=== PATIENT | male | born 1980 | race Caucasian/White ===

== ENCOUNTER 2021-10-27 05:55 | Day surgery (SDC) | payer OTHER ==
[~2021-10-27] VITALS: Ht 190.5 cm; Wt 125.0 kg
[~2021-10-27 05:55] MED LIST: LITHIUM CARBON600 MG PO; OSTERA TABLET1 EACH PO
--- NOTE | 2021-10-27 08:39 | NUR ---
PT ALERT, ORIENTED AND RATHER SUBDUED. PT ANSWERS QUESTIONS RATHER MATTER OF FACTLY, BUT RESPECTFULLY.PT RESERVED, REQUESTED PRAYER AND HAS RIDE HIS RIDE HOME ARRANGED. WILL FOLLOW
--- NOTE | 2021-10-27 09:11 | NUR ---
10/27/21 0911 Kassie Marcum 0908 PATIENT ARRIVES TO PACU UNRESPONSIVE TO PAIN. ORAL AIRWAY IN PLACE. RESP EVEN AND UNLABORED WITH INTERVENTION, MASK AT 6 LITERS, INCREASED TO 8 LITERS.
[2021-10-27] MEDS ORDERED: ACETAMINOPHEN500 MG PO (09:20)
[2021-10-27] MEDS ORDERED: OXYCODON-ACETA1 EAC2 PO (09:20)
--- NOTE | 2021-10-27 10:18 | NUR ---
1005 PATIENT TO DAY SURGERY 6. REPORT RECIEVED FROM DALLAS BARRIOS. PATIENT IS DROWSY. PATIENT BREATHING EQUAL AND UNLABORED. OXYGEN SATURATIONS 90% ON ROOM AIR. PATIENT COMPLAINS OF 6/10 DENIES ANY PAIN MEDICATION AT THIS TIME. IVF INFUSING. AT BEDSIDE. CALL LIGHT WITHIN REACH NO FUTHER NEEDS. NO QUESTIONS AT THIS TIME.
--- NOTE | 2021-10-27 11:37 | NUR ---
1105 PATIENT ABLE TO AMBULATE TO RESTROOM. VOIDED 400 MLS OF CLEAR AND YELLOW URINE. PATIENT IS ALERT AND ORIENTED. BREATHING EQUAL AND UNLABORED. OXYGEN SATURATIONS ABOVE 90% ON ROOM AIR. PATIENT ABLE TO EAT AND DRINK. DENIES NAUSEA. PATIENT COMPLAINS OF 4/10 PAIN. DENIES NEEDING ANYTHING FOR PAIN AT THIS TIME. CALL LIGHT WITHIN REACH NO FUTHER NEEDS. NO QUESTIONS AT THIS TIME. 1125 PATIENT HAS MET DISCHARGE CRITERIA. PATIENT DRESSED SELF AND TOLERATED IT WELL. NO QUESTIONS AT THIS TIME. IV D/C'D WNL. PATIENT WAS WHEELED OUT OF FACILITY TO PRIVATE AUTO WITH .
--- NOTE | 2021-10-27 13:04 | OR ---
[facility] [address], [place] [address] Signed DATE OF OPERATION: 10/27/2021 SURGEON: Isabelle Encinas MD PREOPERATIVE DIAGNOSIS: Acalculous cholecystitis. POSTOPERATIVE DIAGNOSES: 1. Acalculous cholecystitis. 2. Fatty infiltration of liver with mild granular nodularity. PROCEDURES: 1. Laparoscopic cholecystectomy with intraoperative cholangiogram. 2. Surgeon-directed fluoroscopy. 3. Laparoscopic liver biopsy (medial segment left lobe of liver). ANESTHESIA: General endotracheal, Nina Alejandra, SCRAP CHARGER and local 15 mL of 0.25% Marcaine with epinephrine. INDICATION: This 40-year-old large man is a patient of Dr. Stan Pizano and has had symptoms highly typical of biliary disease including postprandial right upper abdominal and epigastric pain. A gallbladder ultrasound was found to be normal and subsequent CCK-HIDA test was performed, which showed essentially no ejection fraction from the gallbladder at all. This was performed on July 28, 2021. His symptoms have increased in recent times. He is admitted at this time to undergo cholecystectomy preferred by a laparoscopic approach. He understands the risk of bleeding, infection, bile duct injury, need for open procedure and importantly failure to improve his symptoms. Understanding these risks, he wished to proceed. FINDINGS: The gallbladder was chronically inflamed and relatively distended. The cholangiogram was found to be normal. The gallbladder once excised showed chronic inflammatory change of the mucosa and one small bit of cholesterol material adherent to the mucosa. The patient also had fatty liver with mild coarse nodularity and on that basis, a liver biopsy was obtained as well. There were no complications. DESCRIPTION OF PROCEDURE: Electronically Signed By: ISABELLE ENCINAS MD 10/27/21 1304 PATIENT NAME: ARCELIA COATES OPERATIVE REPORT DATE OF : 80 REPORT #: [id number] PHYSICIAN: ISABELLE ENCINAS MD PCP: STAN PIZANO MD REPORT IS CONFIDENTIAL AND NOT TO BE RELEASED WITHOUT AUTHORIZATION [facility] [address], [place] [address] Signed The patient was brought to the operating room, and given a general endotracheal anesthetic. Preoperative antibiotic Ancef was given. Sequential compression device stockings were used and heparin subcutaneously administered. The abdomen was clipped and prepared with a chlorhexidine solution and draped sterilely. An infraumbilical incision was made and using an open Colt cannula technique pneumoperitoneum was achieved to a level of 14 mmHg of carbon dioxide gas. Intra-abdominal inspection showed no sign of ascites or carcinomatosis. The liver had a somewhat fatty infiltrated appearance with mild granular nodularity. Adhesions were noted to the gallbladder itself. Three additional trocars were placed in usual configuration in the subxiphoid, right midclavicular, and right anterior axillary line. The gallbladder was dissected free from omental adhesions and elevated cephalad. The gallbladder itself did look chronically inflamed. Lateral retraction of the infundibulum of the gallbladder allowed for dissection of the triangle of Calot. The critical view of safety maintained identifying the cystic arterial branch which was doubly clipped and divided and ultimately the cystic duct itself. A clip was applied across the gallbladder cystic duct junction and a transverse choledochotomy made in the cystic duct. Egress of clear bile was noted. Using an Nguyễn type cholangiocatheter system, intraoperative cholangiography was undertaken showing free flow of contrast in biliary tree with prompt emptying into the duodenum. There was no sign of biliary anomaly or other abnormality and certainly no filling defect. The catheter was removed and the cystic duct was triply clipped and divided and the gallbladder was dissected free in a retrograde fashion using electrocautery. The gallbladder was not entered and there was no spillage of bile, nevertheless the gallbladder was placed in an endobag and extracted through the infraumbilical port site without problem. The gallbladder was opened on the back table and found to have chronic inflammatory change of the mucosa and a bit of adherent cholesterol debris. Irrigation was undertaken in the subhepatic space. There was no sign of bile leak, bleeding, or other problem. Given the unusual nature of his liver, liver biopsy was deemed warranted. Percutaneously, a Biopty gun biopsy was taken in the medial segment of left lobe of the liver. A good biopsy specimen was obtained. The site was cauterized with good hemostasis. The trocars were removed under direct visualization showing no sign of bleeding. Infraumbilical fascial incision was reapproximated with interrupted 0 Vicryl suture. A 15 mL of 0.25% Marcaine with epinephrine injected locally. The skin was closed with interrupted 3-0 Vicryl. Steri-Strips were applied as well. The patient was ultimately extubated and transferred to the recovery room in good condition having suffered no complications. Sponge, needle, and instrument counts were reported as Electronically Signed By: ISABELLE ENCINAS MD 10/27/21 1304 PATIENT NAME: ARCELIA COATES OPERATIVE REPORT DATE OF : 80 REPORT #: [id number] PHYSICIAN: ISABELLE ENCINAS MD PCP: STAN PIZANO MD REPORT IS CONFIDENTIAL AND NOT TO BE RELEASED WITHOUT AUTHORIZATION [address] [address] Signed correct x3. MD MARCELINO Murdock/MODL /[id number] cc: Stan Pizano MD Copies: STAN PIZANO MD ~ Electronically Signed By: ISABELLE ENCINAS MD 10/27/21 1304 PATIENT NAME: ARCELIA COATES HELENE OPERATIVE REPORT DATE OF : 80 REPORT #: [id number] PHYSICIAN: ISABELLE ENCINAS MD PCP: STAN PIZANO MD REPORT IS CONFIDENTIAL AND NOT TO BE RELEASED WITHOUT AUTHORIZATION
--- NOTE | 2021-10-28 11:45 | PATH ---
[facility] [address] [place], [place] [address] Signed SPECIMEN(S): A GALLBLADDER SPECIMEN(S): B LIVER BIOPSY SPECIMEN SOURCE: A. GALLBLADDER B. LIVER BIOPSY CLINICAL HISTORY: Chronic cholecystitis. Laparoscopic cholecystectomy. FINAL PATHOLOGIC DIAGNOSIS: A. Gallbladder, cholecystectomy: - Mild chronic cholecystitis. B. Liver, needle core biopsy: - Steatohepatitis, moderate to marked, with cirrhosis. - See microscopic description and comment. COMMENT: Additional clinical history regarding the liver is not provided. Diagnostic considerations include alcohol-induced fatty liver disease versus NAFLD. Clinical correlation is indicated. AMB:[facility]:C2NR MICROSCOPIC EXAMINATION: A. Histologic sections of all submitted blocks are examined by light microscopy. These findings, together with the gross examination, support the pathologic diagnosis. B. A biopsy of partially fragmented hepatic tissue is reviewed, containing scattered portal triads for evaluation. The most prominent finding is that of large droplet steatosis, with associated mild to moderate periportal and mild lobular inflammation. 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 Occasional glycogenated nuclei are present. Bile ductules are present in all portal tracts reviewed, with no evidence of granulomata or ductulitis. Trichrome and reticulin stains highlight increased periportal fibrosis, foci of lobular fibrosis and the formation of regenerative nodules consistent with early cirrhosis. Iron stain reveals no evidence of increased hepatocellular iron deposition, and PAS with diastase reveals no intracellular PATIENT NAME: ARCELIA COATES PATHOLOGY DATE OF : 80 REPORT #: [id number] PHYSICIAN: GULSHAN PEREZ PCP: STAN DUNNE MD REPORT IS CONFIDENTIAL AND NOT TO BE RELEASED WITHOUT AUTHORIZATION [facility] [address], [place] [address] Signed inclusions. There is no evidence of malignancy. AMB:[facility] GROSS DESCRIPTION: Two specimens are received in two containers, labeled "AA." A. The specimen, labeled "AA, A," and designated on the requisition "gallbladder," is received in formalin and consists of Specimen: Previously opened gallbladder. Dimensions: 8.4 x 4.3 cm. Serosa: Violaceous and smooth. Cystic Duct: unobstructed. Calculi: Not grossly identified. Mucosa: Yo-red and roughened. Wall thickness: Up to 0.4 cm. Lymph node: No pericystic lymph nodes are grossly identified. Additional: None. Hog Killer sections are submitted in cassette (A1). B. The specimen, labeled "AA, B," and designated on the requisition "liver biopsy," is received in formalin and consists of one yo, cylindrical tissue core measuring 0.1 cm in diameter and 1.6 cm in length. The tissue core is inked with eosin and entirely submitted in cassette (B1). AT (under the direct supervision of a pathologist) The Gross Description was prepared using a voice recognition system. The report was reviewed for accuracy; however, sound-alike word errors, addition and/or deletions may occur. If there is any question about this report, please contact Client Services. PERFORMING LABORATORY: The technical component was performed by [facility], [address] [place] [id number] (CLIA# [id number]). Professional interpretation was performed by [facility], [facility], [address] [place] [id number] (CLIA#: [id number]). Diagnostician: Vielka Gordon MD Pathologist Electronically Signed 10/28/2021 Copies: PATIENT NAME: ARCELIA COATESNCER PATHOLOGY DATE OF : 80 REPORT #: [id number] PHYSICIAN: GUL[facility]AN PATHOLOGY PCP: STAN DUNNE MD REPORT IS CONFIDENTIAL AND NOT TO BE RELEASED WITHOUT AUTHORIZATION [address] [address] Signed ~ PATIENT NAME: ARCELIA COATES HELENE PATHOLOGY DATE OF : 80 REPORT #: [id number] PHYSICIAN: GULSHAN PATHOLOGY PCP: STAN DUNNE MD REPORT IS CONFIDENTIAL AND NOT TO BE RELEASED WITHOUT AUTHORIZATION
== END 2021-10-27 11:25 | disposition home or self-care (01) ==
LOC: DS 05:55
PROVIDERS: ATTEND Surgery
PROC: BF12YZZ Fluoroscopy of Gallbladder using Other Contrast (ICD-10-PCS; 2021-10-27)
PROC: 0FB24ZX Excision of Left Lobe Liver, Percutaneous Endoscopic Approach, Diagnostic (ICD-10-PCS; 2021-10-27)
PROC: 0FT44ZZ Resection of Gallbladder, Percutaneous Endoscopic Approach (ICD-10-PCS; principal; 2021-10-27 06:45)
DX: K81.1 Chronic cholecystitis (principal); K74.60 Unspecified cirrhosis of liver; E66.9 Obesity, unspecified; S83.511S Sprain of anterior cruciate ligament of right knee, sequela; F99 Mental disorder, not otherwise specified; Z88.0 Allergy status to penicillin; Z68.32 Body mass index [BMI] 32.0-32.9, adult
CPT/HCPCS: 00790; 74300; J0330; J0690; J1100; J1644; J1885; J2001; J2250; J2405; J2704; J3010; J7121; Q9967